=== PATIENT | male | born 2005 | race Caucasian/White ===

== ENCOUNTER 2024-12-16 08:46 | Emergency (ER) | payer BC | END 2024-12-16 09:35 | disposition home or self-care (01) | LOC: MW.ED 08:46 | DX: S61.212A Laceration without foreign body of right middle finger without damage to nail, initial encounter (principal); F17.210 Nicotine dependence, cigarettes, uncomplicated; W26.8XXA Contact with other sharp object(s), not elsewhere classified, initial encounter | CPT/HCPCS: 12001; 12041; 73140-26-F7; 73140-F7; 99283 ==